=== PATIENT | male | born 1950 | race Caucasian/White ===

== ENCOUNTER → 2017-05-21 | Outpatient (CLI) | payer MEDICARE ==
--- NOTE | 2017-05-21 11:29 | PCVCIMAG ---
APPROVED REPORT Exam: Stress Echocardiogram Indication: chest pain, diabetes, hyperlipidemia, hypertension Patient Location: Echo lab Stress Nurse: Catalina Morgan RN Status: routine Ht: 5 ft 10 in HR: 74 bpm Medical History Medical History: Diabetes, HTN, Hyperlipidemia Procedure The patient underwent an Exercise Stress Test using the Hugo Protocol. Blood pressure, heart rate, and EKG were monitored. An Echocardiogram was performed by commercial maintenance technician in four stages in quad fashion. At peak stress, four selected images were obtained and placed side by side with resting images for comparison. Stress Test Details Stress Test: Exercise stress testing was performed using a Hugo protocol. HR Resting HR: 74 bpmMax Heart Rate (APMHR): 153 bpm Max HR Achieved: 169 bpmTarget HR (85% APMHR): 130 bpm % of APMHR: 110 HR response to stress: Normal HR response to stress BP Resting BP: 122/80 mmHg Max BP: 198/78 mmHg ECG Resting ECG: Sinus Rhythm Stress ECG: Sinus Rhythm ST Change: ST depression Arrhythmia: APC's Recovery ECG: ST depression Recovery ST Change: ST depression Clinical Reason for Termination: Maximal effort Exercise duration: 11 min sec Highest Stage Achieved: Stage 4: 4.2 mph at 16% grade. Exercise capacity: 13.40 METs Overall Exercise Capacity for Age: Good Pre-Stress Echo The resting Echocardiogram showed normal left ventricular contractility with an estimated Ejection Fraction of about 55-60%. Basal inferior wall is hypokinetic. Post-Stress Echo The stress Echocardiogram showed normal left ventricular contractility with an estimated Ejection Fraction of about 60-65%. Basal inferior wall remains hypokinetic. Conclusion Clinical Response: Ischemic Exercise Capacity: Average Stress ECG Response: Ischemic Stress Echo Images: Ischemic Other Information Study Quality: Good
== END | disposition home or self-care (01) ==
LOC: PCVCIMAG 09:14
PROVIDERS: ATTEND Internal Medicine Cardiovascular Disease
DX: I10 Essential (primary) hypertension (principal); R07.89 Other chest pain; R94.39 Abnormal result of other cardiovascular function study; E11.8 Type 2 diabetes mellitus with unspecified complications; G47.33 Obstructive sleep apnea (adult) (pediatric); E78.5 Hyperlipidemia, unspecified; R94.31 Abnormal electrocardiogram [ECG] [EKG]; Z87.891 Personal history of nicotine dependence; Z99.89 Dependence on other enabling machines and devices; Z79.899 Other long term (current) drug therapy
CPT/HCPCS: 80061; 93005; 93325; 93351; G0463

== ENCOUNTER → 2018-01-01 | Outpatient (CLI) | payer MEDICARE | END | disposition home or self-care (01) | LOC: PCVCCLINIC 11:52 | DX: I25.10 Atherosclerotic heart disease of native coronary artery without angina pectoris (principal); I10 Essential (primary) hypertension; E78.00 Pure hypercholesterolemia, unspecified; E11.8 Type 2 diabetes mellitus with unspecified complications; Z87.891 Personal history of nicotine dependence; Z79.82 Long term (current) use of aspirin | CPT/HCPCS: 80061; 93005; G0463 ==

== ENCOUNTER → 2018-10-01 | Outpatient (CLI) | payer MEDICARE ==
--- NOTE | 2018-10-01 10:37 | PCVCIMAG ---
APPROVED REPORT Study performed: 10/01/2018 09:33:55 Exam: Stress Echocardiogram Indication: CAD-non obstructive, htn, dm Patient Location: Echo lab Stress Nurse: Isabel Shields RN Status: routine Ht: 5 ft 10 in HR: 62 bpm BP: 128/82 mmHg Rhythm: NSR Procedure The patient underwent an Exercise Stress Test using the Hugo Protocol. Blood pressure, heart rate, and EKG were monitored. An Echocardiogram was performed by seal delivery vehicle team technician in four stages in quad fashion. At peak stress, four selected images were obtained and placed side by side with resting images for comparison. Stress Test Details Stress Test: Exercise stress testing was performed using a Hugo protocol. HR Resting HR: 62 bpmMax Heart Rate (APMHR): 152 bpm Max HR Achieved: 160 bpmTarget HR (85% APMHR): 129 bpm % of APMHR: 105 Recovery HR: 75 bpm HR response to stress: Normal HR response to stress BP Resting BP: 128/82 mmHg Max BP: 156/70 mmHg Recovery BP: 156/70 mmHg BP response to stress: Normal blood pressure response to stress. ECG Resting ECG: Sinus Rhythm Stress ECG: Sinus Rhythm ST Change: false positive, ischemic inferior ST depression Maximum ST Deviation: 2.5 mm Arrhythmia: occasional PACs Recovery ECG: Sinus Rhythm Recovery ST Change: Normal Recovery Arrhythmia: None Clinical Reason for Termination: Maximal effort Stress Symptoms: Dyspnea Exercise duration: 11 min 05 sec Highest Stage Achieved: Stage 4: 4.2 mph at 16% grade. Exercise capacity: 13.4 METs Overall Exercise Capacity for Age: Normal Scale: Active Angina Score: None Stress ECG Conclusion Grijalva Treadmill Score is -1.5 which is Moderate risk. Pre-Stress Echo The resting Echocardiogram showed normal left ventricular contractility with an estimated Ejection Fraction of about >55%. Normal wall motion in all segments on baseline images. Post-Stress Echo The stress Echocardiogram showed normal left ventricular contractility with an estimated Ejection Fraction of about 65%. Normal augmentation of wall motion in all segments on post stress images. Clinical No clinical or ECG evidence for ischemia. Conclusion Clinical Response: Non-ischemic Exercise Capacity: Average Stress ECG Response: Ischemic- false positive EKG changes Stress Echo Images: Non-ischemic The left ventricle is normal in size and wall thickness in both the rest and stress images. False positive EKG changes confirmed by negative cath in apr 2017. Other Information Study Quality: Adequate <Conclusion> The left ventricle is normal in size and wall thickness in both the rest and stress images. False positive EKG changes confirmed by negative cath in apr 2017.
== END | disposition home or self-care (01) ==
LOC: PCVCIMAG 09:43
PROVIDERS: ATTEND Internal Medicine Cardiovascular Disease
DX: I25.10 Atherosclerotic heart disease of native coronary artery without angina pectoris (principal); I10 Essential (primary) hypertension; E11.9 Type 2 diabetes mellitus without complications
CPT/HCPCS: 93325; 93351